=== PATIENT | female | born 1950 | race Caucasian/White ===

== ENCOUNTER 2022-09-10 11:48 | Day surgery (SDC) | payer MEDICARE, BC ==
[~2022-09-10] VITALS: Ht 170.2 cm; Wt 62.3 kg
[~2022-09-10 11:48] MED LIST: LIPITOR20 MG PO; LORAZEPAM1 MG PO; PAROXETINE HCL30 MG PO; TRELEGY ELLIPT1 EAC1 INH
[2022-09-10 12:06] VITALS: BP 120/67
--- NOTE | 2022-09-10 13:22 | NUR ---
09/10/22 1322 Rachel Chino 1316- PT ARRIVED TO PACU, LEFT LATERAL POSITION. PT RESPONSIVE TO VOICE STIMULI. ALL MONITORS IN PLACE. 3L O2 PER NC. PT DENIES PAIN OR NAUSEA. ENCOURAGED TO PASS GAS, ABD SOFT.
[2022-09-10 13:51] VITALS: BP 105/68
--- NOTE | 2022-09-11 14:14 | OR ---
[facility] [address], [place] [address] Signed DATE OF OPERATION: 09/10/2022 SURGEON: Barbara Beltrán MD PREOPERATIVE DIAGNOSES: 1. History of tubular adenoma and hyperplastic polyp 2017. 2. History of lung cancer treatment, radiation and chemotherapy (underlying chronic obstructive pulmonary disease). POSTOPERATIVE DIAGNOSES: 1. Sigmoid and left-sided diverticulosis. 2. Adenomatous polyp of proximal ascending colon. 3. Hyperplastic appearing polyps of rectosigmoid. PROCEDURE: Total colonoscopy to cecum with cold snare polypectomy x1 and cold morcellation polypectomy x3. ANESTHESIA: Intravenous sedation; fentanyl 150 mcg and Versed 6 mg. INDICATION: This 72-year-old white woman is a patient of Brittany White as well as Laura Enriquez PA-C. She underwent colonoscopy by me in 2016, at which time she was noted to have hyperplastic polyp as well as a tubular adenoma. She in the meantime has been treated for lung cancer, which is considered in remission from a chemo and radiation therapy. Surgery was considered unlikely given her underlying COPD and other comorbidities. She is admitted at this time to undergo surveillance colonoscopy. She understands the risk of bleeding, infection, and perforation. FINDINGS: The prep was good. Complete colonoscopy was undertaken to the cecum. There was an adenomatous appearing polyp that was less than a cm in the proximal ascending colon, this was excised with cold snare technique as well as additional morcellation resection to the surrounding area. She did have numerous diverticula of the sigmoid and left colon. There were several small polyps of the rectosigmoid, most likely hyperplastic. These also were excised and passed in the same specimen jar. Electronically Signed By: BARBARA BELTRÁN MD 09/11/22 1414 [facility] DATE OF : 52 REPORT #: [id number] PHYSICIAN: BARBARA BELTRÁN MD PCP: LAURA ENRIQUEZ Violet-Kya REPORT IS CONFIDENTIAL AND NOT TO BE RELEASED WITHOUT AUTHORIZATION [facility] [address], [place] [address] Signed DESCRIPTION OF PROCEDURE: The patient was brought to the endoscopy suite and placed in the lateral decubitus position, given intravenous sedation to the point of slurred speech and nystagmus. Digital rectal examination was normal. Full cardiopulmonary monitoring was maintained. The Olympus video colonoscope was passed in the rectum and manipulated throughout the colon noting some hyperplastic polyps of the rectosigmoid. Numerous diverticula were noted of the sigmoid and left colon. The scope was ultimately advanced to the cecum. The cecum was fully intubated. Irrigation was undertaken. The ileocecal valve and appendiceal orifice were normal. The scope was withdrawn and in the proximal ascending colon there was a rounded sessile appearing adenomatous polyp, this was excised with cold snare polypectomy technique. Additional morcellation excision of the base of the polyp area was undertaken as it had a suspicious appearance as well. The scope was then withdrawn. Further examination showed no sign of abnormality into the rectosigmoid where the original polyps were noted. These were hyperplastic in appearance. They were ablated with cold morcellation technique and passed in the same specimen jar. Retroflexed view was undertaken showing some internal hemorrhoidal change. The scope was then removed and the patient was taken to the recovery room in good condition. CONCLUDING DIAGNOSES: 1. Diverticulosis. 2. Internal hemorrhoids. 3. Polyps right colon (adenoma) and rectosigmoid (probably hyperplastic). PLAN: Recommend repeat colonoscopy in 5 years, sooner if clinically indicated. Would also recommend high-fiber diet. She will return to the ongoing care of Brittany White as well as Laura Enriquez. MD LEA Hackett/PBL /[id number] cc: KEVIN Doan Electronically Signed By: BARBARA BELTRÁN MD 09/11/22 1414 PAT[facility] DATE OF : 52 REPORT #: [id number] PHYSICIAN: BARBARA BELTRÁN MD PCP: LAURA ENRIQUEZ REPORT IS CONFIDENTIAL AND NOT TO BE RELEASED WITHOUT AUTHORIZATION [facility] [address] [place] [address] Signed REANNA Iglesias Copies: LAURA ENRIQUEZ ~ Electronically Signed By: BARBARA BELTRÁN MD 09/11/22 1414 PATIENT NAME: KAYLEIGH FISCHER [facility] REPORT DATE OF : 52 REPORT #: [id number] PHYSICIAN: BARBARA BELTRÁN MD PCP: LAURA ENRIQUEZ REPORT IS CONFIDENTIAL AND NOT TO BE RELEASED WITHOUT AUTHORIZATION
--- NOTE | 2022-09-14 15:17 | PATH ---
[facility] [address] [place], [place] [address] Signed SPECIMEN(S): A PROXIMAL ASCENDING/RIGHT COLON POLYP SPECIMEN(S): B RECTOSIGMOID POLYP SPECIMEN SOURCE: A. PROXIMAL ASCENDING/RIGHT COLON POLYP B. RECTOSIGMOID POLYP CLINICAL HISTORY: History of colon polyps. Postop: Diverticulosis, polyps, hemorrhoids. FINAL PATHOLOGIC DIAGNOSIS: A. Proximal ascending/right colon polyp: - Tubulovillous adenoma (2 fragments). - Serrated polyp/adenoma (multiple fragments). B. Rectosigmoid polyp: - Hyperplastic polyp (multiple fragments). [id number] MICROSCOPIC EXAMINATION: Histologic sections of all submitted blocks are examined by light microscopy. These findings, together with the gross examination, support the pathologic diagnosis. GROSS DESCRIPTION: A. The specimen, labeled and designated "Fischer, C," and designated on the requisition "colon, proximal ascending right polypectomy," is received in formalin and consists of multiple soft, polypoid tissue fragments measuring 0.2 to 0.5 cm in length and up to 0.4 cm in greatest diameter. All tissue specimens are submitted entirely in (A1). B. The specimen, labeled and designated "Fischer, C," and designated on the requisition "colon, sigmoid, rectum, polypectomy," is received in formalin and consists of three perez, soft, polypoid tissue fragments measuring 0.2 to 0.5 cm in length and up to 0.2 cm in greatest diameter, all specimens are submitted entirely in (B1). MMA (under the direct supervision of a pathologist) The Gross Description was prepared using a voice recognition system. The report was reviewed for accuracy; however, sound-alike word errors, addition and/or deletions may occur. If there is any question about this report, please contact Client Services. PERFORMING LABORATORY: PATIENT NAME: KAYLEIGH FISCHER [facility] DATE OF : 52 REPORT #: [id number] PHYSICIAN: [facility] PCP: BRODY ENRIQUEZ REPORT IS CONFIDENTIAL AND NOT TO BE RELEASED WITHOUT AUTHORIZATION [address] [address] Signed Technical component was performed by [facility], [address] [place] [id number] (CLIA# [id number]). Professional interpretation was performed by [facility] - [facility], [address] [place] [id number] (CLIA#: [id number]). Diagnostician: Thaddeus Munoz MD Pathologist Electronically Signed 09/14/2022 Copies: ~ PATIENT NAME: KAYLEIGH FISCHER [facility] DATE OF : 52 REPORT #: [id number] PHYSICIAN: [facility] PCP: BRODY ENRIQUEZ REPORT IS CONFIDENTIAL AND NOT TO BE RELEASED WITHOUT AUTHORIZATION
== END 2022-09-10 13:58 | disposition home or self-care (01) ==
LOC: OPS 11:48 → DS 11:52 → OPS 13:00 → DS 13:00 → OPS 13:58
PROVIDERS: ATTEND Surgery
PROC: 0DBN8ZX Excision of Sigmoid Colon, Via Natural or Artificial Opening Endoscopic, Diagnostic (ICD-10-PCS; 2022-09-10)
PROC: 0DBK8ZX Excision of Ascending Colon, Via Natural or Artificial Opening Endoscopic, Diagnostic (ICD-10-PCS; principal; 2022-09-10 13:00)
DX: Z12.11 Encounter for screening for malignant neoplasm of colon (principal); K57.30 Diverticulosis of large intestine without perforation or abscess without bleeding; D12.2 Benign neoplasm of ascending colon; K63.5 Polyp of colon; K64.8 Other hemorrhoids; Z86.010 Personal history of colon polyps; Z85.118 Personal history of other malignant neoplasm of bronchus and lung; J44.9 Chronic obstructive pulmonary disease, unspecified
CPT/HCPCS: 99153; G0500; J2250; J3010; J7121

== ENCOUNTER 2023-11-11 09:43 | Day surgery (SDC) | payer MEDICARE, OTHER ==
[~2023-11-11] VITALS: Ht 170.2 cm; Wt 63.2 kg
[~2023-11-11 09:43] MED LIST changes: +IBLOOD GLUCOSE TEST STRIP 1 EA TEST VI PRN; +LACTATED RINGER'S 1,000 ML IV SCH; +LIDOCAINE HCL 1% 5 ML SDV INJ ONE; +MIDAZOLAM HCL 5 MG/5 ML VIAL IV PRN; +fentaNYL citrate 100 MCG/2 ML VIAL IV PRN
[2023-11-11 10:00] VITALS: BP 124/81
--- NOTE | 2023-11-11 10:17 | NUR ---
DON AVELAR IN HALLWAY.
[2023-11-11] MEDS ORDERED: MIDAZOLAM HCL 5 MG/5 ML VIAL ONE (11:24)
[2023-11-11] MEDS ORDERED: fentaNYL citrate 100 MCG/2 ML VIAL ONE (11:24)
--- NOTE | 2023-11-11 12:15 | NUR ---
11/11/23 Zoe5 Melonie Montaño 1212-PATIENT ARRIVED TO PACU ON 3L NC RR EVEN. PATIENT DROWSY EYES OPEN DENIES PAIN OR NAUSEA. LAYING LEFT LATERAL IVF INFUSING. ABDOMEN SOFT. ENCOURAGED TO PASS GAS. DOZES BACK TO SLEEP.
[2023-11-11 13:12] VITALS: BP 111/80
--- NOTE | 2023-11-15 14:00 | OR ---
[facility] [address] [place], [place] [address] Signed DATE OF OPERATION: 11/11/2023 SURGEON: Barbara Beltrán MD PREOPERATIVE DIAGNOSIS: History of serrated adenoma 2022, right colon. POSTOPERATIVE DIAGNOSES: 1. No evidence of residual serrated adenoma. 2. Diverticulosis of sigmoid. 3. Hyperplastic polyps x2, sigmoid and rectosigmoid. PROCEDURE: Total colonoscopy to cecum with cold morcellation polypectomy x2. ANESTHESIA: Intravenous sedation; fentanyl 100 mcg and Versed 5 mg. INDICATION: This 73-year-old white woman is a patient of Bebe Bailey PA-C. She underwent colonoscopy in September of 2022, where she was found to have a serrated sessile adenoma of the right colon. She is symptom-free at this time. I have recommended short-term follow up regarding the serrated adenoma based on its histology. The risk of bleeding, infection, and perforation related to colonoscopy was reviewed with her. She understands and wished to proceed. FINDINGS: The prep was good. Complete colonoscopy was undertaken of the cecum. She had numerous diverticula of the sigmoid colon, which made some difficulty in passage, but it was accomplished without problem ultimately. Complete evaluation of the right colon including cecum showed no sign of recurrent polyp there. She did have what appeared to be hyperplastic polyps of the sigmoid and rectosigmoid which were excised. PROCEDURE IN DETAIL: The patient was brought to the endoscopy suite and placed in the lateral decubitus position, given intravenous sedation to the point of slurred speech and nystagmus. Digital rectal examination was normal. An Olympus video colonoscope was passed in the rectum and manipulated into the sigmoid. Angulation deformity was notable and fair amount of care was undertaken to ultimately Electronically Signed By: BARBARA BELTRÁN MD 11/15/23 [facility] PATIENT NAME: KAYLEIGH FISCHER [facility] REPORT DATE OF : 52 REPORT #: [id number] PHYSICIAN: BARBARA BELTRÁN MD PCP: BEBE BAILEY PA-C REPORT IS CONFIDENTIAL AND NOT TO BE RELEASED WITHOUT AUTHORIZATION [facility] [address] [place], [place] [address] Signed negotiate through the sigmoid as there were numerous diverticula. Once in the left colon, the scope was passed rather easily to the cecum. The ileocecal valve and appendiceal orifice were normal and scope was withdrawn from that point. Examination showed no sign of abnormality into the distal sigmoid where a small hyperplastic appearing polyp was noted, this was excised with cold morcellation technique. Further withdrawal showed another polyp probably hyperplastic in the rectosigmoid, it too was excised. Retroflexed view of the rectum was normal. Scope was removed and the patient was taken to the recovery room in good condition. CONCLUDING DIAGNOSES: Diverticulosis and polyps x2. PLAN: Recommend repeat colonoscopy in 5 years, sooner if clinically indicated. She will return to the ongoing care of Bebe Bailey PA-C. MD LEA Hackett/CORTNEY /[id number] cc: Bebe Bailey PA-C Copies: ~ Electronically Signed By: BARBARA BELTRÁN MD 11/15/23 1400 PATIENT NAME: KAYLEIGH FISCHER [facility] REPORT DATE OF : 52 REPORT #: [id number] PHYSICIAN: BARBARA BELTRÁN MD PCP: BEBE BAILEY PA-C REPORT IS CONFIDENTIAL AND NOT TO BE RELEASED WITHOUT AUTHORIZATION
== END 2023-11-11 13:15 | disposition home or self-care (01) ==
LOC: OPS 09:43 → DS 09:43 → OPS 13:15 → DS 14:00 → OPS 14:00
PROVIDERS: ATTEND Surgery
PROC: 0DBN8ZZ Excision of Sigmoid Colon, Via Natural or Artificial Opening Endoscopic (ICD-10-PCS; 2023-11-11)
PROC: 0DBP8ZZ Excision of Rectum, Via Natural or Artificial Opening Endoscopic (ICD-10-PCS; principal; 2023-11-11 11:00)
DX: D12.8 Benign neoplasm of rectum (principal); K62.1 Rectal polyp; K63.5 Polyp of colon; K57.30 Diverticulosis of large intestine without perforation or abscess without bleeding; J44.9 Chronic obstructive pulmonary disease, unspecified; Z79.899 Other long term (current) drug therapy; Z86.0100 Personal history of colon polyps, unspecified; Z85.118 Personal history of other malignant neoplasm of bronchus and lung; Z90.49 Acquired absence of other specified parts of digestive tract; Z88.3 Allergy status to other anti-infective agents
CPT/HCPCS: 88305; 99153; G0500; J2250; J3010; J7121